=== PATIENT | male | born 1940 | race American Indian/Alaskan Native ===

== ENCOUNTER 2017-08-17 00:12 | Emergency (ER) | payer MEDICARE ==
[2017-08-17] MEDS ORDERED: CATAPRES PO ONE (02:12)
[2017-08-17 02:16] VITALS: BP 147/83
[2017-08-17] MEDS ORDERED: DECADRON IM ONE (03:42)
--- NOTE | 2017-08-17 03:58 | Emergency Department Report ---
ED Allergic Reaction HPI - General Chief complaint: Eye Problems Stated complaint: EYE PAIN,SORE THROAT Time Seen by Provider: 08/17/17 02:57 Source: patient Mode of arrival: Ambulatory Limitations: No Limitations - History of Present Illness Initial Comments: 76-year-old male with a past medical history hypertension presents to the hospital possible allergic reaction. Patient received a flu shot at 11 AM. By 4 PM he had throat irritation, and itchy burning eyes. Patient denies any difficulty swallowing, wheezing, or rash. Throat symptoms have improved but persistent itching and burning to her eyes so patient came to the hospital. BP was elevated upon arrival but spontaneously improved without treatment in the ED. - Related Data Previous Rx's Medication Instructions Recorded Last Taken Type diphenhydrAMINE [Benadryl CAP] 25 mg PO Q6HR PRN #30 capsule 08/17/17 Unknown Rx predniSONE [Deltasone] 40 mg PO QDAY 5 Days 08/17/17 Unknown Rx Allergies Allergy/AdvReac Type Severity Reaction Status Date / Time No Known Allergies Allergy Unverified 08/17/17 01:02 ED Review of Systems ROS: Stated complaint: EYE PAIN,SORE THROAT Other details as noted in HPI Comment: All other systems reviewed and negative Other: Constitutional: No fevers chills or weight loss Eyes: Eye irritation. No blurred vision reported ENT: As per HPI Neck: Denies pain Respiratory: Denies cough wheezing shortness of breath Cardiovascular: Denies chest pain, palpitations, syncope GI: Denies abdominal pain, nausea, vomiting, diarrhea, constipation, melena hematochezia : Denies dysuria, urinary frequency, or urgency Musculoskeletal: Denies back pain, joint swelling Skin: Denies rash, lesions, erythema Neurologic: Denies headache, numbness, weakness Psychiatric: Denies suicidal ideation, hallucinations ED Past Medical Hx - Past Medical History Hx Hypertension: Yes (has not taken blood pressure today) - Surgical History Past Surgical History?: No - Social History Smoking Status: Never Smoker Substance Use Type: None - Medications Home Medications: Home Medications Medication Instructions Recorded Confirmed Last Taken Type diphenhydrAMINE [Benadryl CAP] 25 mg PO Q6HR PRN #30 capsule 08/17/17 Unknown Rx predniSONE [Deltasone] 40 mg PO QDAY 5 Days 08/17/17 Unknown Rx ED Physical Exam - General Limitations: No Limitations - Other Other exam information: General: No limitations, patient is alert in no acute distress Head exam: Atraumatic, normocephalic Eyes exam: Normal appearance, pupils equal reactive to light, extraocular movements intact, mild erythema to the conjunctiva/irritation. ENT: Moist mucous membrane, normal oropharynx, no edema Neck exam: Normal inspection, full range of motion, no meningismus nontender Respiratory exam: Clear to auscultation bilateral, no wheezes, rales, crackles Cardiovascular: Normal rate and rhythm, normal heart sounds Abdomen: Soft, nondistended, and nontender, with normal bowel sounds, no rebound, or guarding Extremity: Full range of motion normal inspection no deformity Back: Normal Inspection, full range of motion, no tenderness Neurologic: Alert, oriented x3, cranial nerves intact, no motor or sensory deficit Psychiatric: normal affect, normal mood Skin: Warm, dry, intact ED Course Vital Signs 08/17/17 08/17/17 08/17/17 00:23 00:57 02:16 Temperature 98.4 F 98.4 F Pulse Rate 62 63 62 Respiratory 18 18 Rate Blood Pressure 177/143 177/143 147/83 O2 Sat by Pulse 98 97 Oximetry - Reevaluation(s) Reevaluation #1: 08/17/17 03:57 IM Decadron order. BP improved without meds ED Medical Decision Making - Medical Decision Making Patient will be treated systemically with steroids and Benadryl. Given IM Decadron prior to discharge. Patient is driving home and therefore struck the to get Benadryl and take prior to bedtime. - Differential Diagnosis allergic reaction, viral syndrome, conjunctivitis Critical Care Time: No Critical care attestation.: If time is entered above; I have spent that time in minutes in the direct care of this critically ill patient, excluding procedure time. ED Disposition Clinical Impression: Allergic reaction, Hypertension Disposition: DC-01 TO HOME OR SELFCARE Is pt being admited?: No Does the pt Need Aspirin: No Condition: Stable Instructions: Hypertension (ED), Allergies (ED) Additional Instructions: Take the medication as prescribed. Return if symptoms worsen as indicated by the discharge instructions. Prescriptions: diphenhydrAMINE [Benadryl CAP] 25 mg PO Q6HR PRN #30 capsule PRN Reason: Allergy Symptoms predniSONE [Deltasone] 40 mg PO QDAY 5 Days Referrals: KULDIP RIOS MD [Primary Care Provider] - 3-5 Days Time of Disposition: 03:58
== END 2017-08-17 04:48 | disposition home or self-care (01) ==
LOC: ED 00:12
DX: T78.40XA Allergy, unspecified, initial encounter (principal); I10 Essential (primary) hypertension; X58.XXXA Exposure to other specified factors, initial encounter
CPT/HCPCS: 96372; 99282; J1100